=== PATIENT | male | born 1960 | race Caucasian/White ===

== ENCOUNTER → 2018-10-07 | Outpatient (CLI) | payer OTHER ==
[~2018-10-07] VITALS: Ht 182.9 cm; Wt 104.3 kg
[~2018-10-07] MED LIST: ALPRAZOLAM2 MG PO; ESCITALOPRAM OX10 MG PO; IBUPROFEN 200200 M1 PO; METHYLPHENIDATE20 M1 PO; OXYCODONE-ACET1 EAC2 PO; TESTOSTERO200 MG/1 M IM; TRAZODONE HCL50 MG PO
--- NOTE | ~2018-10-07 | HPC ---
[facility] [address] [address] PAIN MANAGEMENT CONSULTATION Name: TERESITAYANNA HAWKINS Room #: REG HELENA Pedro Pablo#: [id number] Admission: 10/07/18 Attend Phys: Jeremy Treviño MD Discharge: Date of : 62 Report #: [id number] THIS REPORT FOR: //name// CC: Dr. Yoni Treviño DATE OF SERVICE: 10/07/2018 Followup visit for management of intrathecal infusion pump for post-laminectomy syndrome. The patient returns to clinic today for refill of his intrathecal infusion pump. This is his first appointment at [facility]. I have been providing management of his intrathecal pump now for about 4 years at [facility]. He has a history of several back surgeries. He is on his fourth intrathecal pump. He has had intrathecal therapy for a number of years and is on relatively high dose. 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 He has been on 45 morphine milligram equivalents per day of oxycodone and has managed it effectively. There are no unexpected entries in the [employer] monitoring, which we have reviewed. He reports that he developed shingles. The rash appears to be about the T12 dermatome on the left. He was given antiviral agent, although he cannot remember whether it was Famvir, acyclovir. They offered him pain medication, but he refused because of his opioid agreement. The shingles was one of the worst pain he has experienced in a number of years. He describes his current back pain; however, as a continuous, burning, shooting, aching pain 5/10. Pain follows a bit of a radicular distribution down the back of the legs in the L4-L5 distribution. MEDICATIONS: Advil, Lexapro, alprazolam 1 mg 2-3 times daily for chronic anxiety and Ritalin 20 mg b.i.d. He has a history of adult attention deficit disorder. He has been on the opioid in combination with benzodiazepine for a number of years with no issue. Impact pain score is relatively low around 25/70. 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 He has 3 grandchildren and new one on the way. He is very enthusiastic about his family. He denies use of alcohol. No history of recreational drug use. Continues to smoke 10 cigarettes a day [place] [address] PAIN MANAGEMENT CONSULTATION Name: YANNA LO Room #: REG [facility] Pedro Pablo#: [id number] Admission: 10/07/18 Attend Phys: Jeremy Treviño MD Discharge: Date of : 62 Report #: [id number] PHYSICAL EXAMINATION: A pleasant 58-year-old, 6 feet tall, 230 pounds, BMI of 31.2, blood pressure 135/96, heart rate 86, respirations 16, O2 sat 98. He moves from sitting to standing position, ambulates without difficulty. Chest is clear. No respiratory difficulties. Cardiac rhythm is regular and rapid. There is well-healed scarring along the T10-T12 dermatomal distribution of the back from his shingles outbreak. It is no longer tender. There is no allodynia. Pump is in the left lower abdomen and nontender. IMPRESSION: 1. Chronic low back pain with radiculopathy, post-laminectomy syndrome. 2. History of cervical radiculopathy with spinal stenosis. 3. Management of intrathecal pump with refill and reprogramming. 4. Management of oral breakthrough medication under terms of written opioid agreement. PROCEDURE: Skin was prepped with ChloraPrep. Skin anesthetized and a 22-gauge non-coring needle advanced in the pump. Old medication removed and discarded. Pump was refilled then with a combination of hydromorphone 20 mg and clonidine 450. Daily dose is hydromorphone 10, clonidine 125 with a PTM device. It will allow for 47% increase overall in both medications. I provided him with additional oxycodone 10/325. He can take up to 3 tablets a day. Under terms of agreement, he has agreed to carefully safeguard his medication. There would no other providers. Buccal drug screens were performed randomly and he resigned an opioid agreement with this today. Followup visit planned in 2 months. By: [id number] Jeremy Treviño MD /nt
[2018-10-07 14:59] VITALS: BP 135/96
--- NOTE | 2018-10-07 16:10 | NUR ---
Pain Clinic Assessment: 1. History of Osteoarthritis: KNEES BACK History of Rheumatoid Arthritis: NO 2. Height: 6 ft. 0 in. 182.9 cm. Weight: 230.0 lb. oz. 104.328 kg. Patient's BMI: 31.2 3. Vital Signs: BP: 135/96 Pulse: 86 Resp: 16 Temp: 02 Sat: 98 ECG Mon: 4. Pain Intensity: 5 5. Fall Risk: Dizziness: N Needs help standing or walking: N Fallen in the last 3 months: N Fall risk comments: 6. Patient on Blood Thinner: None 7. History of Hypertension: N 8. Opioid Therapy greater than 6 weeks: Opiate Contract Signed: 9. Risk Assessment Tool Provided: 8-LOW RISK 10. Functional Assessment Tool: 11. Recreational Drug Use: Unknown Drug Type: Tobacco Use: Current Every Day Smoker Tobacco Type: Cigarettes Amount or Packs/day: 10 CIG How Many Years: 20 Alcohol Use: No Frequency: Quant:
== END | disposition home or self-care (01) ==
LOC: PAIN 07:19
DX: Z45.1 Encounter for adjustment and management of infusion pump (principal); M96.1 Postlaminectomy syndrome, not elsewhere classified; M54.16 Radiculopathy, lumbar region; G89.29 Other chronic pain; F41.8 Other specified anxiety disorders; F17.210 Nicotine dependence, cigarettes, uncomplicated; Z79.891 Long term (current) use of opiate analgesic; Z98.890 Other specified postprocedural states; Z79.899 Other long term (current) drug therapy

== ENCOUNTER → 2018-11-30 | Outpatient (CLI) | payer OTHER ==
[~2018-11-30] VITALS: Ht 182.9 cm; Wt 114.8 kg
--- NOTE | ~2018-11-30 | HPC ---
[facility] [address] [place] [address] PAIN MANAGEMENT CONSULTATION Name: YANNA LO Room #: REG HELENA Ananth.#: [id number] Admission: 11/30/18 ������������������ Attend Phys: Jeremy Treviño MD Discharge: ������������������ Date of : 62 Report #: [id number] THIS REPORT FOR: //name// CC: Reagan Treviño DATE OF SERVICE: 11/30/2018 Followup visit for chronic low back pain, post-laminectomy syndrome with radiculopathy, management of intrathecal infusion pump. This is a followup visit for the patient who has an intrathecal pump and received some supplementary oral oxycodone under 50 morphine milligram equivalents to help manage his pain. I would like to taper his systemic opioid further and I have discussed this with him today. He has not worked for a number of years. He is active around his home. Pain medications provided allowing to be much more active. He denies side effects from either his intrathecal or oral medications. He has osteoarthritis of knees and back. He is modestly overweight with a BMI of 34.3 and has been given some instructions on dieting and weight loss. He has gained 25 pounds over the winter. His pain intensity is a 5/10. He does not appear to be a fall risk. He does not use blood thinners and is not treated for hypertension. He has completed a risk assessment tool and is considered at [id number] risk. Continues to smoke and was counseled. PHYSICAL EXAMINATION: Blood pressure 150/95, heart rate 80, respirations 16, BMI 34.3. Moves from sitting to standing position, ambulates without difficulty. Has tenderness across his low back. He has pain with forward flexion, extension and rotation. There is no evidence of straight leg raising discomfort today. IMPRESSION: 1. Chronic low back pain, post-laminectomy syndrome. 2. History of cervical radiculopathy with spinal stenosis, now improved with less discomfort. 3. Management of intrathecal ____ pump with refill and reprogramming session today. 4. Management of oxycodone for supplement with plans for decrease in tapering of dose. PROCEDURE: Refill reprogramming. Skin was prepped with ChloraPrep. A 22-gauge non-coring needle advanced in the pump. Old medication removed and discarded per protocol. The pump refilled with a combination of hydromorphone and clonidine. Reprogramming session was performed including a PTM. Maximum daily [address] [address] PAIN MANAGEMENT CONSULTATION Name: TERESITAYANNA Room #: REG CLI Pedro Pablo#: [id number] Admission: 11/30/18 ������������������ Attend Phys: Jeremy Treviño MD Discharge: ������������������ Date of : 62 Report #: [id number] dose is 12.3 of hydromorphone. This correlates about 125 mcg of clonidine per day. Next refill is scheduled for 01/28/2019. We may go a little bit longer than that with his PTM. He does not use all of the available doses. I renewed his oral medications for 2 months. This is strict instruction to safeguard his medication carefully. We have checked his prescription drug monitoring program information. There are no one expected entries. We will reduce his oxycodone to 7.5 at next visit. We will continue to try and taper going 4-5 mg reducing it by 50% over the course of the next 6 months. Followup visit planned in 2 months. ��������������������������������������������� ���������������������������������������� By: ��������������������������������������������� [id number] Jeremy Treviño MD /nt
[2018-11-30 11:16] VITALS: BP 150/95
--- NOTE | 2018-11-30 11:26 | NUR ---
Pain Clinic Assessment: 1. History of Osteoarthritis: KNEES BACK History of Rheumatoid Arthritis: NO 2. Height: 6 ft. 0 in. 182.9 cm. Weight: 253.0 lb. oz. 114.760 kg. Patient's BMI: 34.3 3. Vital Signs: BP: 150/95 Pulse: 80 Resp: 16 Temp: 02 Sat: 92 ECG Mon: 4. Pain Intensity: 5 5. Fall Risk: Dizziness: N Needs help standing or walking: N Fallen in the last 3 months: N Fall risk comments: 6. Patient on Blood Thinner: None 7. History of Hypertension: N 8. Opioid Therapy greater than 6 weeks: Opiate Contract Signed: 9. Risk Assessment Tool Provided: 8-LOW RISK 10. Functional Assessment Tool: 11. Recreational Drug Use: Unknown Drug Type: Tobacco Use: Current Every Day Smoker Tobacco Type: Amount or Packs/day: How Many Years: Alcohol Use: No Frequency: Quant: Pain Clinic Assessment: 1. History of Osteoarthritis: KNEES BACK History of Rheumatoid Arthritis: NO 2. Height: 6 ft. 0 in. 182.9 cm. Weight: 253.0 lb. oz. 114.760 kg. Patient's BMI: 34.3 3. Vital Signs: BP: 150/95 Pulse: 80 Resp: 16 Temp: 02 Sat: 92 ECG Mon: 4. Pain Intensity: 5 5. Fall Risk: Dizziness: N Needs help standing or walking: N Fallen in the last 3 months: N Fall risk comments: 6. Patient on Blood Thinner: None 7. History of Hypertension: N 8. Opioid Therapy greater than 6 weeks: Opiate Contract Signed: 9. Risk Assessment Tool Provided: 8-LOW RISK 10. Functional Assessment Tool: 11. Recreational Drug Use: Unknown Drug Type: Tobacco Use: Current Every Day Smoker Tobacco Type: Amount or Packs/day: How Many Years: Alcohol Use: No Frequency: Quant:
== END | disposition home or self-care (01) ==
LOC: PAIN 06:59
DX: Z45.1 Encounter for adjustment and management of infusion pump (principal); M54.5 Low back pain; G89.29 Other chronic pain; M96.1 Postlaminectomy syndrome, not elsewhere classified; E66.09 Other obesity due to excess calories; F17.210 Nicotine dependence, cigarettes, uncomplicated; Z79.891 Long term (current) use of opiate analgesic; Z98.890 Other specified postprocedural states; Z68.34 Body mass index [BMI] 34.0-34.9, adult; Z79.899 Other long term (current) drug therapy

== ENCOUNTER → 2019-01-27 | Outpatient (CLI) | payer OTHER ==
[~2019-01-27] VITALS: Ht 182.9 cm; Wt 114.8 kg
[~2019-01-27] MED LIST changes: +ADVIL PM LIQUI1 EACH PO; -ESCITALOPRAM OX10 MG PO; +ESCITALOPRAM OX20 MG PO; -IBUPROFEN 200200 M1 PO; +VALIUM5 MG PO
--- NOTE | ~2019-01-27 | HPC ---
[facility] [place] [address] PAIN MANAGEMENT CONSULTATION Name: YANNA LO Room #: REG HELENA Ananth.#: [id number] Admission: 01/27/19 ������������������ Attend Phys: Jeremy Treviño MD Discharge: ������������������ Date of : 62 Report #: [id number] THIS REPORT FOR: //name// CC: Reagan Treviño DATE OF SERVICE: 01/27/2019 Followup visit for chronic low back pain, post-laminectomy syndrome with radiculopathy. The patient returns to pain clinic today and has had a marked increase in his left low back pain, now with radiation into the L5-S1 distribution, all the way to the foot, consistent with radiculopathy. He has not had a recent MRI. He has had a previous laminectomy. His intrathecal infusion pump is managing his pain and he is continuing to use his breakthrough, oral oxycodone 10/325 three times daily on a regular basis. When he has had an episode of severe spasm, he has taken diazepam, which he has at home. I have cautioned him about the interaction between oxycodone and benzodiazepines, but I provided him with 12 tablets to be used cautiously and carefully as he has used the medication he currently has at home. This is not to be taken on a regular basis. PHYSICAL EXAMINATION: GENERAL: He is a pleasant 58-year-old. MUSCULOSKELETAL: He moves from sitting to standing position and ambulates with antalgic gait. He has tenderness across his low back. Pain with forward flexion, extension and rotation. There is positive straight leg raising on the left, reproducing pain, following an L5 distribution. He has pain with internal and external rotation of his hip, but this is mild. There is tenderness in sciatic outflow and pain across the lumbosacral segment. IMPRESSION: 1. Chronic low back pain, post-laminectomy syndrome, now with left L5-S1 radiculopathy. 2. History of cervical radiculopathy, now improved. 3. Management of intrathecal infusion pump with refill and reprogramming session. 4. Management of high risk medication including oxycodone and low dose diazepam for increased muscle spasm related to the new radicular symptoms. PROCEDURE: Refill reprogramming of intrathecal infusion pump. Skin was prepped with ChloraPrep. Skin anesthetized and a 22-gauge non-coring needle advanced in the pump. Old medication removed and discarded. Pump was [facility] [address] [place] [address] PAIN MANAGEMENT CONSULTATION Name: YANNA LO Room #: REG CL Pedro Pablo#: [id number] Admission: 01/27/19 ������������������ Attend Phys: Jeremy Terviño MD Discharge: ������������������ Date of : 62 Report #: [id number] refilled with hydromorphone and clonidine. A reprogramming session was performed. He is on a high dose of hydromorphone 10 mg and clonidine 125 mcg per day. He has well tolerated these medications, which have been established for years. I will not increase them. For breakthrough, he is allowed the oxycodone, which was renewed and plan is for followup before March. I have ordered an MRI of his lumbar spine to confirm any new changes that would result in his radicular symptoms. ��������������������������������������������� ���������������������������������������� By: ��������������������������������������������� [id number] Jeremy Treviño MD /nt
[2019-01-27 14:23] VITALS: BP 139/87
--- NOTE | 2019-01-27 14:27 | NUR ---
Pain Clinic Assessment: 1. History of Osteoarthritis: KNEES BACK History of Rheumatoid Arthritis: NO 2. Height: 6 ft. 0 in. 182.9 cm. Weight: 253.0 lb. oz. 114.760 kg. Patient's BMI: 34.3 3. Vital Signs: BP: 139/87 Pulse: 86 Resp: 14 Temp: 02 Sat: 93 ECG Mon: 4. Pain Intensity: 5 10 MAX-LEFT LEG 5. Fall Risk: Dizziness: N Needs help standing or walking: N Fallen in the last 3 months: N Fall risk comments: 6. Patient on Blood Thinner: None 7. History of Hypertension: N 8. Opioid Therapy greater than 6 weeks: Y Opiate Contract Signed: 01/27/19 9. Risk Assessment Tool Provided: 8-HIGH 10. Functional Assessment Tool: 11. Recreational Drug Use: Never Drug Type: Tobacco Use: Current Every Day Smoker Tobacco Type: Cigarettes Amount or Packs/day: LESS THAN 1 How Many Years: 30 Alcohol Use: No Frequency: Quant:
== END | disposition home or self-care (01) ==
LOC: PAIN 07:00
DX: Z45.1 Encounter for adjustment and management of infusion pump (principal); G89.29 Other chronic pain; M96.1 Postlaminectomy syndrome, not elsewhere classified; M54.17 Radiculopathy, lumbosacral region; F17.210 Nicotine dependence, cigarettes, uncomplicated; Z79.899 Other long term (current) drug therapy

== ENCOUNTER → 2019-04-04 | Outpatient (CLI) | payer OTHER ==
[~2019-04-04] VITALS: Ht 182.9 cm; Wt 117.5 kg
--- NOTE | 2019-04-04 12:52 | NUR ---
Pain Clinic Assessment: 1. History of Osteoarthritis: KNEES BACK History of Rheumatoid Arthritis: NO 2. Height: 6 ft. 0 in. 182.9 cm. Weight: 259.0 lb. oz. 117.482 kg. Patient's BMI: 35.1 3. Vital Signs: BP: Pulse: 93 Resp: 16 Temp: 02 Sat: 99 ECG Mon: 4. Pain Intensity: 5 5. Fall Risk: Dizziness: N Needs help standing or walking: N Fallen in the last 3 months: N Fall risk comments: 6. Patient on Blood Thinner: None 7. History of Hypertension: N 8. Opioid Therapy greater than 6 weeks: Y Opiate Contract Signed: 01/27/19 9. Risk Assessment Tool Provided: 8-HIGH 10. Functional Assessment Tool: 11. Recreational Drug Use: Never Drug Type: Tobacco Use: Current Every Day Smoker Tobacco Type: Cigarettes Amount or Packs/day: A FEW How Many Years: Alcohol Use: No Frequency: Quant:
--- NOTE | 2019-04-07 16:33 | HPC ---
[facility] [address] [address] PAIN MANAGEMENT CONSULTATION Name: YANNA LO Room #: REG HELENA CastilloDianaYoana.#: [id number] Admission: 04/04/19 Attend Phys: Jeremy Treviño MD Discharge: Date of : 62 Report #: [id number] THIS REPORT FOR: //name// CC: Reagan Treviño DATE OF SERVICE: 04/04/2019 Followup visit for post-laminectomy syndrome with radiculopathy and management of intractable pain with intrathecal pump as well as supplementation with oxycodone 10/325. HISTORY OF PRESENT ILLNESS: The patient returns to pain clinic today for refill of his intrathecal infusion pump and renewal of his medications. He is not doing as well as he has in the past. He complains of pain across his low back, some radiation down into his leg on the left. He has gained about 40 pounds this year! He is not as active as he used to be. He has been traveling back and forth to visit family in [place]. Pain score today is a 5/10. He describes it as a burning, shooting, throbbing sensation, mostly in the left leg today, into the foot, but he has pain in both legs, both knees. PHYSICAL EXAMINATION: VITAL SIGNS: Blood pressure 138/88, heart rate 93, respirations 16. He is 6 feet tall, 259 pounds with a BMI of 35.1. CHEST: Clear. CARDIAC: Rhythm is regular. ABDOMEN: His left lower quadrant is mildly tender. He has pain across his low back with positive straight leg raising bilaterally. IMPRESSION: 1. Chronic low back pain with radiculopathy, post-laminectomy syndrome. 2. Management of high-risk medications under terms of written opioid agreement. 3. Increasing left L5-S1 radiculopathy. 4. History of cervical radiculopathy. PROCEDURE: Refill, reprogramming of intrathecal pump. Skin prepped with ChloraPrep. A 22-gauge non-coring needle advanced into the intrathecal pump. Old medication removed and discarded per protocol. Pump refilled with a combination of hydromorphone and clonidine and reprogram session performed with next refill scheduled on 06/03/2019. Oxycodone 10, 90 tablets per [place] [address] PAIN MANAGEMENT CONSULTATION Name: YANNA LO Room #: REG David Wadsworth.#: [id number] Admission: 04/04/19 Attend Phys: Jeremy Treviño MD Discharge: Date of : 62 Report #: [id number] His intrathecal pump is infusing over 10 mg of hydromorphone per day. He was on that dose when he came to see me, and I am reluctant to increase it due to my concerns for granuloma. If he needs additional pain medications, he will be with the 45 MME of oxycodone. We have discussed at great length at each visit, as we did today, the importance of carefully safeguarding these medications for his own use. <ELECTRONICALLY SIGNED> By: Jeremy Treviño MD 04/07/19 1633 [id number] Jeremy Treviño MD /nt
== END | disposition home or self-care (01) ==
LOC: PAIN 06:55
DX: Z45.1 Encounter for adjustment and management of infusion pump (principal); M54.16 Radiculopathy, lumbar region; G89.29 Other chronic pain; M96.1 Postlaminectomy syndrome, not elsewhere classified; M54.12 Radiculopathy, cervical region; F17.210 Nicotine dependence, cigarettes, uncomplicated; Z79.899 Other long term (current) drug therapy; Z79.891 Long term (current) use of opiate analgesic

== ENCOUNTER → 2019-06-06 | Outpatient (CLI) | payer OTHER ==
[~2019-06-06] VITALS: Ht 182.9 cm; Wt 118.2 kg
[~2019-06-06] MED LIST changes: +OXYCODON-ACETA1 EAC1 PO
--- NOTE | ~2019-06-06 | HPC ---
[facility] [place] [address] PAIN MANAGEMENT CONSULTATION Name: YANNA LO Room #: REG HELENA Ananth.#: [id number] Admission: 06/06/19 Attend Phys: Jeremy Treviño MD Discharge: Date of : 62 Report #: [id number] THIS REPORT FOR: //name// CC: Reagan Treviño DATE OF SERVICE: 06/06/2019 Followup visit for management of intrathecal infusion pump and oral opioid therapy under terms of written opioid agreement. The patient returns to pain clinic today in followup. He has post-laminectomy syndrome with radiculopathy and also has had chronic neck pain with cervicalgia and at one point was even showing some early signs of myelopathy, which actually improved with time. He has chronic pain that has been managed with an intrathecal pump for many years. I accepted him into my practice long after it was initiated. I have been managing the pump and oral medications for him since meeting him in [facility] approximately 6 years ago. He was started on oxycodone in addition to his intrathecal infusion pump because of complaints of breakthrough pain. He has shown no signs of misuse or abuse. He has been on time for his prescriptions. It has been sometime since I performed a drug screen. I have also confirmed his use of opioids through the prescription drug monitoring program, which revealed to me today that he is also on two other substances that are centrally acting. He is on alprazolam and receives 122 mg tablets per month from his primary care physician, Dr. Allan. He also is on methylphenidate 20 mg daily. His intrathecal pump infuses clonidine and hydromorphone. This is quite a polypharmacy of centrally acting drugs both oral and intrathecal. He is on high dose intrathecal hydromorphone. I have mentioned to him my concerns regarding the high dose of alprazolam. 122 mg alprazolam tablets implies that he is taking 8 mg of alprazolam a day in addition to the oral oxycodone that I provide. This combination has been deadly on the streets. I told him that we have a number of patients who use very low dose alprazolam or Klonopin often times just simply as a sleep aid, but the doses that he is on and the doses that can be diverted and have been responsible for overdose deaths. I am also uncomfortable with the fact that he is using these sedating medications yet is also asking for methylphenidate 20 mg and using 90 tablets in 30 days. This is an excessive amount. I have suggested that we begin tapering his oral opioids, but I will continue his intrathecal pump. PQRS REVIEW: 1. He complains of some osteoarthritis in his knees and also some spondylosis [address] [address] PAIN MANAGEMENT CONSULTATION Name: TERESITAYANNA BECKHAMUR Room #: REG CLDavid Chamorro#: [id number] Admission: 06/06/19 Attend Phys: Jeremy Treviño MD Discharge: Date of : 62 Report #: [id number] in low back. 2. He is 6 feet tall, 260 pounds. BMI is 35.3. 3. Blood pressure 145/93, heart rate 99, respirations 16, O2 sat 97. 4. Pain intensity 5/10. 5. He is not a fall risk. 6. No blood thinners. 7. No hypertension. 8. He is on an opioid agreement that has been renewed recently in January 2019. We reviewed the terms of that agreement. I have discussed use of opioids as medicines not as drugs to be abused or misused. 9. He has completed risk assessment tool and is at high risk for addiction under the agreement, so we will watch closely following his medications through the prescription drug monitoring programs. 10. Functional assessment score is 38. He is fairly active. 11. Denies use of recreational drugs, denies use of alcohol and continues to smoke cigarettes. He was counseled. All medications were reviewed and reconciled. PHYSICAL EXAMINATION: VITAL SIGNS: As noted above. GENERAL: He moves independently from sitting to standing position. His gait is mildly antalgic. CHEST: Clear. CARDIAC: Rhythm is regular. His pump is in the left lower quadrant, nontender. EXTREMITIES: Straight leg raising is positive for mild discomfort. He has tightness in his low back. Deep tendon reflexes are diminished at biceps, triceps, brachioradialis and also in the lower extremities. No evidence of hyperreflexia to suggest cord compression. His Nunez's is negative. IMPRESSION: 1. Chronic low back pain with radiculopathy, post-laminectomy syndrome. 2. Cervicalgia with radiculopathy, which is now much resolved. 3. Management of intrathecal infusion pump. 4. Management of high risk medications under terms of written opioid agreement. 5. Mild L5-S1 radiculopathy, which has been waxing and waning. PLAN: 1. Medications renewed under terms of our agreement. 2. Urine drug screen performed today. 3. Refill and reprogramming intrathecal infusion pump. PROCEDURE: Skin prepped with ChloraPrep. A 22-gauge non-coring needle advanced into the intrathecal pump. Old medication removed and discarded and refilled with combination of clonidine and hydromorphone. Reprogramming session was performed. There were no complications. Programming information was checked by [address] [address] PAIN MANAGEMENT CONSULTATION Name: YANNA LO Room #: REG [facility].#: [id number] Admission: 06/06/19 Attend Phys: Jeremy Treviño MD Discharge: Date of : 62 Report #: [id number] myself and the pain clinic nurse, copy given to the patient. I plan to see him back in roughly 2-3 months. Oxycodone, which had been 10 mg t.i.d. was reduced to 7.5 mg t.i.d. This will take his MME from 45 down to around 30. He will discuss tapering off of the high dose of alprazolam with Dr. Allan. Followup visit planned as needed. By: [id number] Jeremy Treviño MD /nt
[2019-06-06 12:38] VITALS: BP 145/93
--- NOTE | 2019-06-06 12:56 | NUR ---
Pain Clinic Assessment: 1. History of Osteoarthritis: KNEES BACK History of Rheumatoid Arthritis: NO 2. Height: 6 ft. 0 in. 182.9 cm. Weight: 260.6 lb. oz. 118.208 kg. Patient's BMI: 35.3 3. Vital Signs: BP: 145/93 Pulse: 99 Resp: 16 Temp: 02 Sat: 97 ECG Mon: 4. Pain Intensity: 5 5. Fall Risk: Dizziness: N Needs help standing or walking: N Fallen in the last 3 months: N Fall risk comments: 6. Patient on Blood Thinner: None 7. History of Hypertension: N 8. Opioid Therapy greater than 6 weeks: Y Opiate Contract Signed: 01/27/19 9. Risk Assessment Tool Provided: 8-HIGH 10. Functional Assessment Tool: 11. Recreational Drug Use: Never Drug Type: Tobacco Use: Current Every Day Smoker Tobacco Type: Cigarettes Amount or Packs/day: <1 How Many Years: Alcohol Use: No Frequency: Quant:
== END | disposition home or self-care (01) ==
LOC: PAIN 07:20
DX: Z45.1 Encounter for adjustment and management of infusion pump (principal); M54.16 Radiculopathy, lumbar region; M54.12 Radiculopathy, cervical region; G89.29 Other chronic pain; F17.210 Nicotine dependence, cigarettes, uncomplicated; Z79.891 Long term (current) use of opiate analgesic; Z79.899 Other long term (current) drug therapy

== ENCOUNTER → 2019-08-08 | Outpatient (CLI) | payer OTHER ==
[~2019-08-08] VITALS: Ht 182.9 cm; Wt 117.7 kg
--- NOTE | ~2019-08-08 | HPC ---
[facility] [address] [address] PAIN MANAGEMENT CONSULTATION Name: YANNA LO Room #: REG HELENA Pedro Pablo#: [id number] Admission: 08/08/19 Attend Phys: Jeremy Treviño MD Discharge: Date of : 62 Report #: [id number] THIS REPORT FOR: //name// CC: Reagan Treviño DATE OF SERVICE: 08/08/2019 Followup visit for chronic intractable low back pain, post-laminectomy syndrome, cervical radiculopathy and management of intrathecal infusion pump and medications. The patient is here today for refill of his intrathecal infusion pump. I am continuing his oral opioids, but will taper them again at his next refill. He has a PTM device that he uses along with a continuous infusion of hydromorphone, clonidine for his chronic pain. He had an extended visit today from 1230 through 1320. An additional assessment time was utilized to complete his disability paperwork. He reports that he is unable to work and depends on his disability income to live. He has chronic pain and anxiety disorder. Like so many who have taken an early disability, he is unable to consider returning to the workforce in any capacity. His chronic pain is related to his back where he has had laminectomies in 1992, 1997 and he has had multiple knee surgeries. He was diagnosed with cervical stenosis a few years ago and has continued to have some ongoing pain in his neck as well. In addition to managing his intrathecal infusion pump, I have been providing with some opioid medication; although, we are in the process of tapering. I reduced him at last visit from 10 mg to 7.5 and at the end of the winter. As weather improves, we will reduce him to 5 mg of oxycodone 3 times daily or an MME of around 20. He has signed an opioid agreement. He denies side effects. He reports that the additional medication helps him throughout the day. He is more active with less pain. I have performed urine drug screens on several occasions and there are no unexpected entries. I have also reviewed his medications on the prescription drug monitoring program. All as expected. At last visit, I told him about my concerns of alprazolam in addition to his opioids. He has taken it safely obviously, but 8 mg a day of alprazolam! He has reportedly reduced his dose by half and will continue to try and reduce [place] [address] PAIN MANAGEMENT CONSULTATION Name: YANNA LO Room #: REG ANKITDavid Chamorro#: [id number] Admission: 08/08/19 Attend Phys: Jeremy Treviño MD Discharge: Date of : 62 Report #: [id number] PHYSICAL EXAMINATION: GENERAL: Today, he is pleasant. VITAL SIGNS: Blood pressure is 142/91, heart rate 101, respirations 18, O2 sats 93.. CHEST: He has mild expiratory wheezes. CARDIAC: Rhythm is regular. ABDOMEN: Soft. Pump is in the lower abdomen on the left and nontender. MUSCULOSKELETAL: He moves independently from sitting to standing position. His gait is nonantalgic. He has tenderness across the scars in his back. He also has some tenderness of his neck and reduced range of motion. Straight leg raising bilaterally is performed without significant radiculopathy. IMPRESSION: 1. Chronic intractable pain with disability syndrome. 2. Post-laminectomy syndrome. 3. Cervical radiculopathy, C5-C6 with history of cervical stenosis. 4. Bilateral knee pain, status post multiple surgeries. 5. Management of intrathecal infusion pump with refill and reprogramming. 6. Management of opioid medications under terms of written opioid agreement. PROCEDURE: Skin was prepped with ChloraPrep and a 22-gauge non-coring needle advanced into the intrathecal pump on the first attempt. We expected 3.0, removed 5.5. The pump was then refilled with a combination of hydromorphone and clonidine. Reprogramming session was performed. Programming information was checked by myself and the nursing and was found to be correct and copy was given to the patient. His medications were sent electronically for 2 months. He was reminded again of his requirements of safeguarding medications carefully and using them for his own purposes. Followup visit is planned in September. By: [id number] Jeremy Treviño MD /regulo
[2019-08-08 12:45] VITALS: BP 142/91
--- NOTE | 2019-08-08 12:48 | NUR ---
Pain Clinic Assessment: 1. History of Osteoarthritis: KNEES BACK History of Rheumatoid Arthritis: NO 2. Height: 6 ft. 0 in. 182.9 cm. Weight: 259.4 lb. oz. 117.663 kg. Patient's BMI: 35.2 3. Vital Signs: BP: 142/91 Pulse: 101 Resp: 18 Temp: 02 Sat: 93 ECG Mon: 4. Pain Intensity: 5 5. Fall Risk: Dizziness: N Needs help standing or walking: N Fallen in the last 3 months: N Fall risk comments: 6. Patient on Blood Thinner: None 7. History of Hypertension: N 8. Opioid Therapy greater than 6 weeks: Y Opiate Contract Signed: 01/27/19 9. Risk Assessment Tool Provided: 8-HIGH 10. Functional Assessment Tool: 11. Recreational Drug Use: Never Drug Type: Tobacco Use: Current Some Day Smoker Tobacco Type: Cigarettes Amount or Packs/day: How Many Years: Alcohol Use: No Frequency: Quant:
== END | disposition home or self-care (01) ==
LOC: PAIN 07:13
DX: Z45.1 Encounter for adjustment and management of infusion pump (principal); G89.29 Other chronic pain; M96.1 Postlaminectomy syndrome, not elsewhere classified; M54.12 Radiculopathy, cervical region; M25.561 Pain in right knee; M25.562 Pain in left knee; F17.210 Nicotine dependence, cigarettes, uncomplicated; Z98.890 Other specified postprocedural states; Z79.891 Long term (current) use of opiate analgesic; Z79.899 Other long term (current) drug therapy

== ENCOUNTER → 2019-10-10 | Outpatient (CLI) | payer OTHER ==
[~2019-10-10] VITALS: Ht 182.9 cm; Wt 117.5 kg
--- NOTE | ~2019-10-10 | HPC ---
[facility] [address] [place] [address] PAIN MANAGEMENT CONSULTATION Name: YANNA LO Room #: REG HELENA Wadsworth.#: [id number] Admission: 10/10/19 Attend Phys: Jeremy Treviño MD Discharge: Date of : 62 Report #: [id number] THIS REPORT FOR: cc: Reagan Allan MD,Reagan Treviño,Jeremy Ernandez MD ~ THIS REPORT FOR: //name// CC: Reagan Treviño DATE OF SERVICE: 10/10/2019 REASON FOR VISIT: Followup visit for chronic low back pain with history of lumbar laminectomy, osteoarthritis, bilateral knees. Management of intrathecal infusion pump and medications under terms of written opioid agreement. HISTORY OF PRESENT ILLNESS: This is a followup visit for this patient for refill of his intrathecal pump. We last filled his pump on 08/22/2019. His activities have remained fairly steady. He complains of pain today in the usual locations. He has pain in his neck, radiating into his left arm, considered radicular in nature. He has bilateral knee pain, which is arthritic. He has had scopes in the past showing some degenerative changes, even several years ago. This has progressed as he has aged. He has had 3 prior back surgeries and complains of pain in his back and pain radiating into his legs. He has a longstanding disability. He has a supportive family, although they are now scattered. His son, who is in the [place], moved to [place]. He has a daughter in [place] and grandchildren. The pump provides medication relief at fairly high dose. I am reluctant to increase the dose despite his request and I have provided him with small amounts of opioid analgesics in the past to help with that. At my recommendation, he has dramatically reduced his use of benzodiazepine provided by Dr. Allan. I told him about my concerns with a combination of medicines. He has shown that he can take them effectively, but I worry every time we see patients on these combinations that they might get out of the hands in one way or another. He understands the important aspects of his care and that he must be extremely responsible with these dangerous medicines. I shared with him a recent article in a lay publication discussing what can happen if patients with pain medication share them with others. The sharing of medications has been implicated in many overdose deaths. He is used to me giving him these discussions and I trust him to carefully manage his medicine. [address] [address] PAIN MANAGEMENT CONSULTATION Name: YANNA LO Room #: REG ANKITDavid Chamorro#: [id number] Admission: 10/10/19 Attend Phys: Jeremy Treviño MD Discharge: Date of : 62 Report #: [id number] I have been reducing his oxycodone from 10 to 7.5 mg and we will reduce it further at the end of the winter. We reviewed his opioid agreement, there have been no changes. I have reviewed his prescription drug monitoring program information and there are no unexpected entries. I have reviewed his most recent urine drug screen, which is appropriate for all medications prescribed including those prescribed by his primary care physician, Dr. Allan. PQRS REVIEW: Positive for osteoarthritis, primarily of the knees and spine. His BMI is stable at 35.1. Blood pressure 138/92, heart rate 78, respirations 18, O2 sat 100, pain intensity 5/10. He is not a fall risk and has not recently injured himself or fallen. He denies use of blood thinning medications. He is treated for hypertension. Medications have been reviewed and reconciled. His opioid agreement was last signed in 01/2019. By the opioid risk tool, he is at fairly high risk of addiction scoring 8. We prescribed his medication 1 month at a time. He is carefully monitored and education as part of the each process. His functional assessment score is 38/70 which has been fairly stable. He denies use of recreational drugs, denies use of alcohol, but does smoke about a half pack a day and continues to do so despite my urging and recommendations and suggestions on quitting. PHYSICAL EXAMINATION: As noted. Pump is in the left lower quadrant, nontender. IMPRESSION: 1. Chronic intractable pain with disability syndrome. 2. Post-laminectomy syndrome. 3. Cervical radiculopathy, which is improved symptomatically quite a bit over the last several years. 4. Bilateral osteoarthritis of the knee. 5. Management of intrathecal infusion pump with refill and reprogramming. 6. Management of opioid medications under terms of written opioid agreement. PROCEDURE: Refill and reprogramming of intrathecal infusion pump. Skin was prepped with ChloraPrep. Skin anesthetized. A 22-gauge non-coring needle advanced into the pump. Old medication was removed and discarded. There was a slight discrepancy, which was noted. Medication was discarded per protocol. Pump was then refilled with a combination of hydromorphone and clonidine and reprogramming session performed. His daily dose is hydromorphone 10 mg per day, clonidine 125 mcg per day. He has a PTM device, which will allow for activations up to 4 times in 1 day for about a 25% increase in his total average daily dose. He uses it frequently 186 activations since his last visit. Pump was refilled. Next refill is scheduled for about 2 months. His CHARLA is [address] [place] [address] PAIN MANAGEMENT CONSULTATION Name: YANNA LO Room #: REG David Peters.#: [id number] Admission: 10/10/19 Attend Phys: Jeremy Treviño MD Discharge: Date of : 62 Report #: [id number] months. I plan to see him back in November. Medications for his breakthrough to prevent additional intrathecal doses were sent electronically. By: [id number] Jeremy Treviño MD /nt
[2019-10-10 12:41] VITALS: BP 138/92
--- NOTE | 2019-10-10 12:44 | NUR ---
Pain Clinic Assessment: 1. History of Osteoarthritis: KNEES BACK History of Rheumatoid Arthritis: NO 2. Height: 6 ft. 0 in. 182.9 cm. Weight: 259.0 lb. oz. 117.482 kg. Patient's BMI: 35.1 3. Vital Signs: BP: 138/92 Pulse: 78 Resp: 18 Temp: 02 Sat: 100 ECG Mon: 4. Pain Intensity: 5 5. Fall Risk: Dizziness: N Needs help standing or walking: N Fallen in the last 3 months: N Fall risk comments: 6. Patient on Blood Thinner: None 7. History of Hypertension: N 8. Opioid Therapy greater than 6 weeks: Y Opiate Contract Signed: 01/27/19 9. Risk Assessment Tool Provided: 8-HIGH 10. Functional Assessment Tool: 11. Recreational Drug Use: Never Drug Type: Tobacco Use: Current Some Day Smoker Tobacco Type: Cigarettes Amount or Packs/day: 0.5 How Many Years: 20 Alcohol Use: No Frequency: Quant:
--- NOTE | 2019-10-10 12:48 | NUR ---
Pain Clinic Assessment: 1. History of Osteoarthritis: KNEES BACK History of Rheumatoid Arthritis: NO 2. Height: 6 ft. 0 in. 182.9 cm. Weight: 259.0 lb. oz. 117.482 kg. Patient's BMI: 35.1 3. Vital Signs: BP: 138/92 Pulse: 78 Resp: 18 Temp: 02 Sat: 100 ECG Mon: 4. Pain Intensity: 5 5. Fall Risk: Dizziness: N Needs help standing or walking: N Fallen in the last 3 months: N Fall risk comments: 6. Patient on Blood Thinner: None 7. History of Hypertension: Y 8. Opioid Therapy greater than 6 weeks: Y Opiate Contract Signed: 01/27/19 9. Risk Assessment Tool Provided: 8-HIGH 10. Functional Assessment Tool: 11. Recreational Drug Use: Never Drug Type: Tobacco Use: Current Some Day Smoker Tobacco Type: Cigarettes Amount or Packs/day: 0.5 How Many Years: 20 Alcohol Use: No Frequency: Quant:
== END | disposition home or self-care (01) ==
LOC: PAIN 06:55
DX: Z45.1 Encounter for adjustment and management of infusion pump (principal); G89.29 Other chronic pain; M96.1 Postlaminectomy syndrome, not elsewhere classified; M54.12 Radiculopathy, cervical region; M17.0 Bilateral primary osteoarthritis of knee; F17.210 Nicotine dependence, cigarettes, uncomplicated; Z98.890 Other specified postprocedural states; Z79.899 Other long term (current) drug therapy; Z79.891 Long term (current) use of opiate analgesic

== ENCOUNTER → 2019-12-12 | Outpatient (CLI) | payer OTHER ==
[~2019-12-12] VITALS: Ht 182.9 cm; Wt 120.1 kg
[~2019-12-12] MED LIST changes: +ENDOCET 7.5-321 EACH PO; +PERCOCET 7.5-31 EAC1 PO
--- NOTE | ~2019-12-12 | HPC ---
[facility] [address] [address] PAIN MANAGEMENT CONSULTATION Name: YANNA LO Room #: REG HELENA Diana.#: [id number] Admission: 12/12/19 Attend Phys: Jeremy Treviño MD Discharge: Date of : 62 Report #: [id number] THIS REPORT FOR: cc: Reagan Allan MD,Reagan Treviño,Jeremy Ernandez MD ~ CC: Reagan Treviño DATE OF SERVICE: 12/12/2019 Followup visit for management of chronic intractable pain, intrathecal pump refill and reprogramming and management of high risk oral medications under terms of written agreement. Followup visit today for the patient who is here today with high dose intrathecal hydromorphone clonidine pump. Because of his daily maximum of 12.3 mg of hydromorphone, I also supplement his additional needs with declining dose of oxycodone, which I provide for him under a written opioid agreement. I am concerned by his high dose opioids and the risk of intrathecal granuloma. He reports today that he has been able to make an adjustment downwards and his benzodiazepine dose as recommended at last visit. He has reduced his dose by 50% and is going to make efforts to reduce it further. We discussed again the opioid, benzodiazepine interaction. Regarding oral medications, he says that the breakthrough medication is helpful. He is glad that he has it and takes it more or less on a schedule. 90 tablets of oxycodone 7.5/325 are taken monthly. He denies side effects. He does have low testosterone, which could also be related to his intrathecal medicine. I have completed review of his prescription drug monitoring program information and there are no unexpected entries. Urine drug screen was performed at my discretion and we tried to do at least yearly. He has been on opioids for a decade. PQRS REVIEW: Completed today, is positive for some osteoarthritis both mostly knees and spondylosis of the spine. He is overweight with a BMI of 35.9. We have talked about this impact on his overall wellness as well as his pain. He is hypertensive. Blood pressure 151/101, pulse 104, respirations 18, O2 sat 94. He is recommended to follow up with Dr. Allan. Pain intensity is 5/10. He has not fallen in the last 3 months. He is on no blood thinners. He is on antihypertensive medication. Compliance is stressed. Opioid agreement is reviewed, signed last in 2019. His risk assessment tool is high for addiction, scoring 8. Functional assessment score 38/70. Continues to smoke, but is reduced by our recommendations. Denies use of alcohol. [address] [address] PAIN MANAGEMENT CONSULTATION Name: YANNA LO Room #: REG [facility] Pedro Pablo#: [id number] Admission: 12/12/19 Attend Phys: Jeremy Treviño MD Discharge: Date of : 62 Report #: [id number] IMPRESSION: 1. Chronic intractable low back pain with spondylosis, post-laminectomy syndrome. 2. Osteoarthritis, bilateral knees. 3. Cervical spondylosis and radiculopathy, stable. 4. Management of intrathecal infusion pump with refill and reprogramming. 5. Management of oral opioid medications under terms of written opioid agreement. PROCEDURE: Refill reprogramming. Skin was prepped with ChloraPrep. Skin was anesthetized and a 22-gauge non-coring needle advanced in the intrathecal pump. Old medication removed and discarded per protocol. Pump was then reprogrammed. Reprogramming session was confirmed by both myself and the nurse and copy given to the patient. His CHARLA is 52 months. His next refill is scheduled for February 09. Oral medications were renewed under terms of our written agreement. His oral MME for oxycodone is roughly 33. Followup visit is scheduled in January. By: [id number] Jeremy Treviño MD /nt
[2019-12-12 12:51] VITALS: BP 151/101
--- NOTE | 2019-12-12 12:53 | NUR ---
Pain Clinic Assessment: 1. History of Osteoarthritis: KNEES BACK History of Rheumatoid Arthritis: NO 2. Height: 6 ft. 0 in. 182.9 cm. Weight: 264.8 lb. oz. 120.113 kg. Patient's BMI: 35.9 3. Vital Signs: BP: 151/101 Pulse: 104 Resp: 18 Temp: 02 Sat: 94 ECG Mon: 4. Pain Intensity: 5 5. Fall Risk: Dizziness: N Needs help standing or walking: N Fallen in the last 3 months: N Fall risk comments: 6. Patient on Blood Thinner: None 7. History of Hypertension: Y 8. Opioid Therapy greater than 6 weeks: Y Opiate Contract Signed: 01/27/19 9. Risk Assessment Tool Provided: 8-HIGH 10. Functional Assessment Tool: 11. Recreational Drug Use: Never Drug Type: Tobacco Use: Current Some Day Smoker Tobacco Type: Amount or Packs/day: How Many Years: Alcohol Use: No Frequency: Quant:
== END | disposition home or self-care (01) ==
LOC: PAIN 06:51
DX: Z45.1 Encounter for adjustment and management of infusion pump (principal); G89.29 Other chronic pain; M47.896 Other spondylosis, lumbar region; M96.1 Postlaminectomy syndrome, not elsewhere classified; M47.22 Other spondylosis with radiculopathy, cervical region; M17.0 Bilateral primary osteoarthritis of knee; I10 Essential (primary) hypertension; F17.210 Nicotine dependence, cigarettes, uncomplicated; Z98.890 Other specified postprocedural states; Z79.891 Long term (current) use of opiate analgesic; Z79.899 Other long term (current) drug therapy

== ENCOUNTER → 2020-02-13 | Outpatient (CLI) | payer OTHER ==
[~2020-02-13] VITALS: Ht 182.9 cm; Wt 115.9 kg
[2020-02-13 12:47] VITALS: BP 124/86
--- NOTE | 2020-02-13 12:59 | NUR ---
Pain Clinic Assessment: 1. History of Osteoarthritis: KNEES BACK History of Rheumatoid Arthritis: NO 2. Height: 6 ft. 0 in. 182.9 cm. Weight: 255.6 lb. oz. 115.940 kg. Patient's BMI: 34.7 3. Vital Signs: BP: 124/86 Pulse: 93 Resp: 16 Temp: 02 Sat: 97 ECG Mon: 4. Pain Intensity: 5 5. Fall Risk: Dizziness: N Needs help standing or walking: N Fallen in the last 3 months: N Fall risk comments: 6. Patient on Blood Thinner: None 7. History of Hypertension: Y 8. Opioid Therapy greater than 6 weeks: Y Opiate Contract Signed: 01/27/19 9. Risk Assessment Tool Provided: 8-HIGH 10. Functional Assessment Tool: 11. Recreational Drug Use: Never Drug Type: Tobacco Use: Current Some Day Smoker Tobacco Type: Amount or Packs/day: How Many Years: Alcohol Use: No Frequency: Quant:
--- NOTE | 2020-02-17 15:51 | HPC ---
[facility] [address] PAIN MANAGEMENT CONSULTATION Name: YANNA LO Room #: REG HELENA Ananth.#: [id number] Admission: 02/13/20 Attend Phys: Jeremy Treviño MD Discharge: Date of : 62 Report #: [id number] THIS REPORT FOR: cc: Reagan Allan MD,Reagan Treviño,Jeremy Ernandez MD ~ CC: Reagan Treviño DATE OF SERVICE: 02/13/2020 Followup visit for chronic pain. The patient is a longstanding patient of our clinic. I manage his intrathecal infusion pump and providing with a 33 morphine milligram equivalents of oxycodone a day as a supplement to his high dose in the pump. I am unwilling to increase his intrathecal pump further. I accepted him as a patient already receiving hydromorphone over 10 mg per day. Addition of clonidine has made a bit of difference. He remains reasonably functional. He reports there have been no significant changes in his pain or his activities. He has not worked for decades. PQRS review is positive for some osteoarthritis. He has cervical spondylosis and has also suffered from cervical radiculopathy. He complains of pain in his knees as well with osteoarthritis noted. BMI is 35. Blood pressure 151/101. Pain intensity 5/10. He needs no assistance with walking, has not fallen in the last 3 months. He is on an opioid agreement last signed 1 year ago. He is at high risk of addiction and we will check a urine drug screen at next visit. He has denied the use of any illicit substances. Functional assessment score is 38/70. Denies use of alcohol, but continues to smoke some and was counseled today. PHYSICAL EXAMINATION: GENERAL: He is talkative today as he generally is. He is pleasant, alert and oriented, shows no signs of overmedication. He has mild tenderness across his low back. Pain with forward flexion, extension, rotational movements are noted. IMPRESSION: 1. Chronic intractable back pain, post-laminectomy syndrome. 2. Cervical radiculopathy, improved. 3. Bilateral osteoarthritis of the knees. 4. Management of intrathecal infusion pump and oral medications under terms of written agreement. PROCEDURE: The pump was refilled in the usual fashion, skin prepped with [address] [address] PAIN MANAGEMENT CONSULTATION Name: TERESITABLUBRENNAN HAWKINS Room #: REG [facility] Ananth.#: [id number] Admission: 02/13/20 Attend Phys: Jeremy Treviño MD Discharge: Date of : 62 Report #: [id number] ChloraPrep. Skin anesthetized and a 22-gauge non-coring needle advanced in the pump. Old medication removed and discarded per protocol. Pump refilled with hydromorphone and clonidine. No changes were made in his medication, which are again at the upper levels of my comfort, hydromorphone is at 10 mg a day, clonidine 125 mcg a day as a basal rate. He can increase this by about 23% with a PTM device. His next refill of his intrathecal infusion pump is ____. I renewed his oxycodone 7.5 three tablets daily. Follow up as needed. Need for a new pump in the future. His residual volumes have not been closely tracking with additional volume noted in the refill. <ELECTRONICALLY SIGNED> By: Jeremy Treviño MD 02/17/20 [id number] Jeremy Treviño MD /nt
== END | disposition home or self-care (01) ==
LOC: PAIN 06:54
PROVIDERS: ATTEND Anesthesiology Pain Medicine
DX: Z45.1 Encounter for adjustment and management of infusion pump (principal); G89.29 Other chronic pain; M96.1 Postlaminectomy syndrome, not elsewhere classified; M54.12 Radiculopathy, cervical region; M17.0 Bilateral primary osteoarthritis of knee; M19.90 Unspecified osteoarthritis, unspecified site; F17.210 Nicotine dependence, cigarettes, uncomplicated; Z98.890 Other specified postprocedural states; Z79.899 Other long term (current) drug therapy; Z79.891 Long term (current) use of opiate analgesic

== ENCOUNTER → 2020-04-12 | Outpatient (CLI) | payer OTHER ==
[~2020-04-12] VITALS: Ht 182.9 cm; Wt 114.6 kg
[~2020-04-12] MED LIST changes: +OXYCODONE-ACET1 EACH PO; +PERCOCET 5-3251 EACH PO
--- NOTE | ~2020-04-12 | HPC ---
[facility] [place] [address] PAIN MANAGEMENT CONSULTATION Name: YANNA LO Room #: REG HELENA CastilloDianaYoana.#: [id number] Admission: 04/12/20 Attend Phys: Jeremy Treviño MD Discharge: Date of : 62 Report #: [id number] THIS REPORT FOR: cc: Reagan Allan MD,Reagan Treviño,Jeremy Ernandez MD ~ CC: Reagan Treviño DATE OF SERVICE: 04/12/2020 Follow up visit for management of intrathecal infusion pump and chronic opioid therapy. The patient returns to pain clinic today for a refill of his pump. He is doing okay. He has been pretty stable over the course of the last 3-6 months. He has been isolating and cautious regarding COVID restrictions as we all have. Continues to be active around his own home, but does not work outside of the home and has been on disability for a number of years. He complains of some osteoarthritis, spondylosis. BMI is 34.3, blood pressure 134/94, heart rate 100, respirations 14, O2 sat 96, pain intensity 5. Moves independently from sitting to standing position, ambulates without too much difficulty, he has no antalgic features. He has some pain across his low back. He is on no blood thinners. He has a history of hypertension, follows with Dr. Allan. He has been on an opioid agreement with me for many years. He reviewed it with me last year and we signed it again. He is at high risk for addiction with a score of 8. I have been keeping a close eye on his medicines with the prescription drug monitoring program information and urine drug screens. I did drop his medication from 10 mg of oxycodone 3 times a day to 7.5 a year or so ago and he was able to do it well. I challenged him today to drop it again to 5 mg/325 three times a day. He tried to push against that, but I told him to try it. I see no reason to try not to use the lowest effective dose and I have given him good reasons why we should do so. He promises me that he safeguards his medications and they are not shared or distributed in any way. He has not lost any prescriptions. Continue to prescribe them electronically. IMPRESSION: 1. Chronic intractable back pain, post-laminectomy syndrome. 2. Cervical radiculopathy, stable. 3. Bilateral osteoarthritis of the knees. 4. Management of high-risk medications with tapering attempted today. 5. Management of intrathecal infusion pump with reprogramming session. PROCEDURE: After informed consent, he was placed in the supine position. [address] [address] PAIN MANAGEMENT CONSULTATION Name: TERESITAYANNA HAWKINS Room #: REG HELENA Chamorro#: [id number] Admission: 04/12/20 Attend Phys: Jeremy Treviño MD Discharge: Date of : 62 Report #: [id number] was prepped with ChloraPrep. Skin was anesthetized and a 22-gauge non-coring needle advanced in the pump. Old medication removed and discarded per protocol. Pump was then refilled with hydromorphone and clonidine. No changes were made in his medication. He is at 10 mg of hydromorphone a day, pretty much the top level that I will infuse that drug without increasing risk of granuloma. He still has a PTM and uses this periodically. Prescription refilled for his oxycodone at 5 mg/325, one tablet t.i.d. for breakthrough pain. Followup visit is scheduled in 3 months. By: [id number] Jeremy Treviño MD /nt
[2020-04-12 13:25] VITALS: BP 131/94
--- NOTE | 2020-04-12 13:44 | NUR ---
Pain Clinic Assessment: 1. History of Osteoarthritis: KNEES BACK History of Rheumatoid Arthritis: NO 2. Height: 6 ft. 0 in. 182.9 cm. Weight: 252.6 lb. oz. 114.579 kg. Patient's BMI: 34.3 3. Vital Signs: BP: 131/94 Pulse: 100 Resp: 14 Temp: 02 Sat: 96 ECG Mon: 4. Pain Intensity: 5 5. Fall Risk: Dizziness: N Needs help standing or walking: N Fallen in the last 3 months: N Fall risk comments: 6. Patient on Blood Thinner: None 7. History of Hypertension: Y 8. Opioid Therapy greater than 6 weeks: Y Opiate Contract Signed: 01/27/19 9. Risk Assessment Tool Provided: 8-HIGH 10. Functional Assessment Tool: 11. Recreational Drug Use: Never Drug Type: Tobacco Use: Current Some Day Smoker Tobacco Type: Cigarettes Amount or Packs/day: How Many Years: Alcohol Use: No Frequency: Quant:
== END | disposition home or self-care (01) ==
LOC: PAIN 06:53
PROVIDERS: ATTEND Anesthesiology Pain Medicine
DX: Z45.1 Encounter for adjustment and management of infusion pump (principal); G89.29 Other chronic pain; M54.5 Low back pain; M96.1 Postlaminectomy syndrome, not elsewhere classified; M17.0 Bilateral primary osteoarthritis of knee; Z98.890 Other specified postprocedural states; Z79.899 Other long term (current) drug therapy; Z79.891 Long term (current) use of opiate analgesic

== ENCOUNTER → 2020-06-14 | Outpatient (CLI) | payer OTHER ==
[~2020-06-14] VITALS: Ht 182.9 cm; Wt 109.0 kg
--- NOTE | ~2020-06-14 | HPC ---
[facility] [place] [address] PAIN MANAGEMENT CONSULTATION Name: YANNA LO Room #: REG HELENA Ananth.#: [id number] Admission: 06/14/20 Attend Phys: Jeremy Treviño MD Discharge: Date of : 62 Report #: [id number] CC: RENETTA Treviño DATE OF SERVICE: 06/14/2020 Followup visit for chronic pain, low back, status post laminectomy and fusion. Lumbar radiculopathy. The patient is here today for refill of his intrathecal infusion pump and order renewal of his oral opioids, which he receives under terms of written opioid agreement. He is reasonably stable. He has been traveling to [place] to see his daughter and also [place] to his son. He has multiple grandchildren. He is disabled. He has not worked for a salary, but finds ability to do chores around his house is improved by his medication. He is grateful for it. Denies side effects. Denies any misuse or abuse and carefully safeguards his medicines. We reviewed his use under the prescription drug monitoring program information. I have been trying to taper his dose and have been able to do so; however, the last dose from oxycodone 7.5 mg he says really was exceptionally noticeable and he would like to go back up on his dose. We discussed it for some time and I have agreed to go ahead and re-resume his oxycodone at 7.5/325 three tablets a day for a total of 22 mg of oxycodone or 33 morphine milligram equivalents. We discussed once again the interaction of alprazolam, methylphenidate, and oxycodone. He has taken these drugs safely together, but he must make sure that they are carefully safeguarded as in other's hands they could be misused, abused or otherwise harmful. He has promised that he keep his medications to himself. Urine drug screens have been performed without any unusual findings. Intrathecal pump also seems to work well to provide some level of pain relief for him. He has been receiving intrathecal medicines now for over 10 years and for about 6-7 years under my direction. He is receiving hydromorphone and clonidine with a PTM device provide for additional boluses. Maximum daily dose is relatively high for hydromorphone at 12.3 and clonidine at 154, but he tolerates it. We will continue these medicines. He is aware that both drugs are off FDA. PHYSICAL EXAMINATION: Pleasant, alert and oriented. He has lost a little bit of weight. BMI is down to 32.6. He has osteoarthritis of the knees. His blood pressure is 137/94, heart rate 93, respirations 14, O2 sat 96, pain intensity 7/10. He has no falls since in the last 3 months. He is not on blood thinners. He is not treated for hypertension. His opioid risk assessment tool score is 8. This requires constant oversight on our part. Opioid therapy provided under terms of written agreement last signed a year ago. We reviewed the terms of that agreement with him today. He continues to smoke. Denies use of alcohol. Moves independently from sitting to standing position, ambulates with mildly antalgic gait. He has tenderness across the scar in his back and limited range of motion. Bilateral knee tenderness. His affect is pleasant with me. He was a little abrupt with the nurses today and this is not unusual. IMPRESSION: 1. Chronic intractable back pain, post-laminectomy syndrome. 2. Bilateral osteoarthritis of the knees. 3. Refill and management of intrathecal infusion pump with reprogramming session. 4. Management of high risk medications reviewed through the prescription drug monitoring program information from [facility]. Adjustment of dose. PROCEDURE: Refill and reprogramming. Skin was prepped with ChloraPrep. A 22-gauge non-coring needle advanced in pump. Old medication removed and discarded per protocol. Pump was then refilled with hydromorphone and clonidine. Reprogramming session was performed. The reprogramming was checked by myself and the nurse, and copy provided to the patient. Prescriptions were refilled for oxycodone 7.5/325 one tablet t.i.d. p.r.n. for breakthrough pain, #90 tablets with a refill in 1 month. We will see him back in the pain clinic in July. By: [id number] Jeremy Treviño MD /nt
[2020-06-14 12:39] VITALS: BP 137/94
--- NOTE | 2020-06-14 12:52 | NUR ---
Pain Clinic Assessment: 1. History of Osteoarthritis: KNEES BACK History of Rheumatoid Arthritis: NO 2. Height: 6 ft. 0 in. 182.9 cm. Weight: 240.4 lb. oz. 109.045 kg. Patient's BMI: 32.6 3. Vital Signs: BP: 137/94 Pulse: 93 Resp: 14 Temp: 02 Sat: 96 ECG Mon: 4. Pain Intensity: 7 5. Fall Risk: Dizziness: Needs help standing or walking: Fallen in the last 3 months: Fall risk comments: 6. Patient on Blood Thinner: None 7. History of Hypertension: N 8. Opioid Therapy greater than 6 weeks: Y Opiate Contract Signed: 01/27/19 9. Risk Assessment Tool Provided: 8-HIGH 10. Functional Assessment Tool: 11. Recreational Drug Use: Never Drug Type: Tobacco Use: Current Some Day Smoker Tobacco Type: Cigarettes Amount or Packs/day: How Many Years: Alcohol Use: No Frequency: Quant:
== END | disposition home or self-care (01) ==
LOC: PAIN 06:54
PROVIDERS: ATTEND Anesthesiology Pain Medicine
DX: G89.29 Other chronic pain (principal); M54.5 Low back pain; M96.1 Postlaminectomy syndrome, not elsewhere classified; M54.16 Radiculopathy, lumbar region; M17.0 Bilateral primary osteoarthritis of knee; Z79.899 Other long term (current) drug therapy; F17.210 Nicotine dependence, cigarettes, uncomplicated

== ENCOUNTER → 2020-08-20 | Outpatient (CLI) | payer OTHER ==
[~2020-08-20] VITALS: Ht 182.9 cm; Wt 110.0 kg
[2020-08-20 12:51] VITALS: BP 135/84
--- NOTE | 2020-08-20 12:57 | NUR ---
Pain Clinic Assessment: 1. History of Osteoarthritis: KNEES BACK History of Rheumatoid Arthritis: NO 2. Height: 6 ft. 0 in. 182.9 cm. Weight: 242.6 lb. oz. 110.043 kg. Patient's BMI: 32.9 3. Vital Signs: BP: 135/84 Pulse: 116 Resp: 18 Temp: 02 Sat: 94 ECG Mon: 4. Pain Intensity: 5 5. Fall Risk: Dizziness: N Needs help standing or walking: N Fallen in the last 3 months: N Fall risk comments: 6. Patient on Blood Thinner: None 7. History of Hypertension: N 8. Opioid Therapy greater than 6 weeks: Y Opiate Contract Signed: 01/27/19 9. Risk Assessment Tool Provided: 8-HIGH 10. Functional Assessment Tool: 11. Recreational Drug Use: Never Drug Type: Tobacco Use: Current Some Day Smoker Tobacco Type: Amount or Packs/day: How Many Years: Alcohol Use: No Frequency: Quant:
== END | disposition home or self-care (01) ==
LOC: PAIN 07:01
PROVIDERS: ATTEND Anesthesiology Pain Medicine
DX: Z45.1 Encounter for adjustment and management of infusion pump (principal); G89.29 Other chronic pain; M96.1 Postlaminectomy syndrome, not elsewhere classified; M19.90 Unspecified osteoarthritis, unspecified site; F17.210 Nicotine dependence, cigarettes, uncomplicated; Z98.890 Other specified postprocedural states; Z79.899 Other long term (current) drug therapy; Z79.891 Long term (current) use of opiate analgesic

== ENCOUNTER → 2020-10-22 | Outpatient (CLI) | payer OTHER ==
[~2020-10-22] VITALS: Ht 182.9 cm; Wt 117.4 kg
[~2020-10-22] MED LIST changes: -ALPRAZOLAM2 MG PO; +XANAX1 MG PO
[2020-10-22 12:40] VITALS: BP 133/91
--- NOTE | 2020-10-22 12:53 | NUR ---
Pain Clinic Assessment: 1. History of Osteoarthritis: KNEES BACK History of Rheumatoid Arthritis: NO 2. Height: 6 ft. 0 in. 182.9 cm. Weight: 258.8 lb. oz. 117.391 kg. Patient's BMI: 35.1 3. Vital Signs: BP: 133/91 Pulse: 108 Resp: 20 Temp: 02 Sat: 95 ECG Mon: 4. Pain Intensity: 5 5. Fall Risk: Dizziness: N Needs help standing or walking: N Fallen in the last 3 months: N Fall risk comments: 6. Patient on Blood Thinner: None 7. History of Hypertension: N 8. Opioid Therapy greater than 6 weeks: Y Opiate Contract Signed: 01/27/19 9. Risk Assessment Tool Provided: 8-HIGH 10. Functional Assessment Tool: 11. Recreational Drug Use: Never Drug Type: Tobacco Use: Current Some Day Smoker Tobacco Type: Cigarettes Amount or Packs/day: How Many Years: Alcohol Use: No Frequency: Quant:
== END | disposition home or self-care (01) ==
LOC: PAIN 10-15 10:52
PROVIDERS: ATTEND Anesthesiology Pain Medicine
DX: Z45.1 Encounter for adjustment and management of infusion pump (principal); G89.29 Other chronic pain; M54.16 Radiculopathy, lumbar region; M54.12 Radiculopathy, cervical region; M19.90 Unspecified osteoarthritis, unspecified site; F17.210 Nicotine dependence, cigarettes, uncomplicated; Z98.890 Other specified postprocedural states; Z79.899 Other long term (current) drug therapy; Z79.891 Long term (current) use of opiate analgesic

== ENCOUNTER → 2020-12-20 | Outpatient (CLI) | payer OTHER ==
[~2020-12-20] VITALS: Ht 182.9 cm; Wt 115.6 kg
[~2020-12-20] MED LIST changes: +NARCAN4 MG NARES
[2020-12-20 13:01] VITALS: BP 159/99
--- NOTE | 2020-12-20 13:06 | NUR ---
Pain Clinic Assessment: 1. History of Osteoarthritis: KNEES BACK History of Rheumatoid Arthritis: NO 2. Height: 6 ft. 0 in. 182.9 cm. Weight: 254.8 lb. oz. 115.577 kg. Patient's BMI: 34.5 3. Vital Signs: BP: 159/99 Pulse: 108 Resp: 20 Temp: 02 Sat: 96 ECG Mon: 4. Pain Intensity: 5 5. Fall Risk: Dizziness: N Needs help standing or walking: N Fallen in the last 3 months: N Fall risk comments: 6. Patient on Blood Thinner: None 7. History of Hypertension: N 8. Opioid Therapy greater than 6 weeks: Y Opiate Contract Signed: 01/27/19 9. Risk Assessment Tool Provided: 8-HIGH 10. Functional Assessment Tool: 11. Recreational Drug Use: Never Drug Type: Tobacco Use: Current Some Day Smoker Tobacco Type: Cigarettes Amount or Packs/day: 3-4 How Many Years: 20 Alcohol Use: No Frequency: Quant:
== END | disposition home or self-care (01) ==
LOC: PAIN 11:27
PROVIDERS: ATTEND Anesthesiology Pain Medicine
DX: Z45.2 Encounter for adjustment and management of vascular access device (principal); G89.29 Other chronic pain; M96.1 Postlaminectomy syndrome, not elsewhere classified; M19.90 Unspecified osteoarthritis, unspecified site; F17.210 Nicotine dependence, cigarettes, uncomplicated; Z98.890 Other specified postprocedural states; Z79.891 Long term (current) use of opiate analgesic; Z79.899 Other long term (current) drug therapy

== ENCOUNTER → 2021-02-21 | Outpatient (CLI) | payer OTHER ==
[~2021-02-21] VITALS: Ht 182.9 cm; Wt 117.0 kg
[2021-02-21 10:53] VITALS: BP 133/93
--- NOTE | 2021-02-21 11:07 | NUR ---
Pain Clinic Assessment: 1. History of Osteoarthritis: KNEES BACK History of Rheumatoid Arthritis: NO 2. Height: 6 ft. 0 in. 182.9 cm. Weight: 258.0 lb. oz. 117.028 kg. Patient's BMI: 35.0 3. Vital Signs: BP: 133/93 Pulse: 115 Resp: 16 Temp: 02 Sat: 95 ECG Mon: 4. Pain Intensity: 5 5. Fall Risk: Dizziness: N Needs help standing or walking: N Fallen in the last 3 months: N Fall risk comments: 6. Patient on Blood Thinner: None 7. History of Hypertension: N 8. Opioid Therapy greater than 6 weeks: Y Opiate Contract Signed: 01/27/19 9. Risk Assessment Tool Provided: 8-HIGH 10. Functional Assessment Tool: 11. Recreational Drug Use: Never Drug Type: Tobacco Use: Current Some Day Smoker Tobacco Type: Cigarettes Amount or Packs/day: 1/2 ppd How Many Years: 20 Alcohol Use: No Frequency: Quant:
== END | disposition home or self-care (01) ==
LOC: PAIN 07:00
PROVIDERS: ATTEND Anesthesiology Pain Medicine
DX: Z45.1 Encounter for adjustment and management of infusion pump (principal); G89.29 Other chronic pain; M54.16 Radiculopathy, lumbar region; M96.1 Postlaminectomy syndrome, not elsewhere classified; M19.90 Unspecified osteoarthritis, unspecified site; F17.210 Nicotine dependence, cigarettes, uncomplicated; Z98.890 Other specified postprocedural states; Z79.899 Other long term (current) drug therapy

== ENCOUNTER → 2021-04-25 | Outpatient (CLI) | payer OTHER ==
[~2021-04-25] VITALS: Ht 182.9 cm; Wt 115.7 kg
[2021-04-25 12:57] VITALS: BP 136/89
[2021-04-25 13:00] VITALS: BP 136/89
--- NOTE | 2021-04-25 13:17 | NUR ---
Pain Clinic Assessment: 1. History of Osteoarthritis: KNEES BACK History of Rheumatoid Arthritis: NO 2. Height: 6 ft. 0 in. 182.9 cm. Weight: 255.0 lb. oz. 115.668 kg. Patient's BMI: 34.6 3. Vital Signs: BP: 136/89 Pulse: 109 Resp: 16 Temp: 02 Sat: 97 ECG Mon: 4. Pain Intensity: 5 5. Fall Risk: Dizziness: N Needs help standing or walking: N Fallen in the last 3 months: N Fall risk comments: 6. Patient on Blood Thinner: None 7. History of Hypertension: N 8. Opioid Therapy greater than 6 weeks: Y Opiate Contract Signed: 01/27/19 9. Risk Assessment Tool Provided: 8-HIGH 10. Functional Assessment Tool: 11. Recreational Drug Use: Never Drug Type: Tobacco Use: Current Some Day Smoker Tobacco Type: Amount or Packs/day: How Many Years: Alcohol Use: No Frequency: Quant:
== END | disposition home or self-care (01) ==
LOC: PAIN 11:15
PROVIDERS: ATTEND Anesthesiology Pain Medicine
DX: Z45.1 Encounter for adjustment and management of infusion pump (principal); M54.5 Low back pain; G89.29 Other chronic pain; M96.1 Postlaminectomy syndrome, not elsewhere classified; M19.90 Unspecified osteoarthritis, unspecified site; F17.210 Nicotine dependence, cigarettes, uncomplicated; Z98.890 Other specified postprocedural states; Z79.899 Other long term (current) drug therapy; Z79.891 Long term (current) use of opiate analgesic

== ENCOUNTER → 2021-06-24 | Outpatient (CLI) | payer OTHER ==
[~2021-06-24] VITALS: Ht 182.9 cm; Wt 114.5 kg
[2021-06-24 12:43] VITALS: BP 140/82
--- NOTE | 2021-06-24 12:56 | NUR ---
Pain Clinic Assessment: 1. History of Osteoarthritis: KNEES BACK History of Rheumatoid Arthritis: NO 2. Height: 6 ft. 0 in. 182.9 cm. Weight: 252.4 lb. oz. 114.488 kg. Patient's BMI: 34.2 3. Vital Signs: BP: 140/82 Pulse: 108 Resp: 20 Temp: 02 Sat: 99 ECG Mon: 4. Pain Intensity: 5 5. Fall Risk: Dizziness: N Needs help standing or walking: N Fallen in the last 3 months: N Fall risk comments: 6. Patient on Blood Thinner: None 7. History of Hypertension: N 8. Opioid Therapy greater than 6 weeks: Y Opiate Contract Signed: 01/27/19 9. Risk Assessment Tool Provided: 8-HIGH 10. Functional Assessment Tool: 11. Recreational Drug Use: Never Drug Type: Tobacco Use: Current Some Day Smoker Tobacco Type: Cigarettes Amount or Packs/day: 1/2 PACK How Many Years: Alcohol Use: No Frequency: Quant:
== END | disposition home or self-care (01) ==
LOC: PAIN 12:11
PROVIDERS: ATTEND Anesthesiology Pain Medicine
DX: Z45.1 Encounter for adjustment and management of infusion pump (principal); M54.59 Other low back pain; G89.29 Other chronic pain; F17.210 Nicotine dependence, cigarettes, uncomplicated; Z98.890 Other specified postprocedural states; Z79.899 Other long term (current) drug therapy

== ENCOUNTER → 2021-08-29 | Outpatient (CLI) | payer OTHER ==
[~2021-08-29] VITALS: Ht 182.9 cm; Wt 114.4 kg
[2021-08-29 12:56] VITALS: BP 120/85
--- NOTE | 2021-08-29 13:10 | NUR ---
Pain Clinic Assessment: 1. History of Osteoarthritis: KNEES BACK History of Rheumatoid Arthritis: NO 2. Height: 6 ft. 0 in. 182.9 cm. Weight: 252.2 lb. oz. 114.397 kg. Patient's BMI: 34.2 3. Vital Signs: BP: 120/85 Pulse: 89 Resp: 16 Temp: 02 Sat: 97 ECG Mon: 4. Pain Intensity: 5 5. Fall Risk: Dizziness: N Needs help standing or walking: N Fallen in the last 3 months: N Fall risk comments: 6. Patient on Blood Thinner: None 7. History of Hypertension: N 8. Opioid Therapy greater than 6 weeks: Y Opiate Contract Signed: 01/27/19 9. Risk Assessment Tool Provided: 8-HIGH 10. Functional Assessment Tool: 11. Recreational Drug Use: Never Drug Type: Tobacco Use: Current Some Day Smoker Tobacco Type: Cigarettes Amount or Packs/day: 3-8 How Many Years: Alcohol Use: No Frequency: Quant:
== END | disposition home or self-care (01) ==
LOC: PAIN 10:44
PROVIDERS: ATTEND Anesthesiology Pain Medicine
DX: Z45.1 Encounter for adjustment and management of infusion pump (principal); M54.59 Other low back pain; G89.29 Other chronic pain; M19.90 Unspecified osteoarthritis, unspecified site; F17.210 Nicotine dependence, cigarettes, uncomplicated; Z98.890 Other specified postprocedural states; Z79.899 Other long term (current) drug therapy; Z79.891 Long term (current) use of opiate analgesic